=== PATIENT | female | born 1985 | race Caucasian/White ===

== ENCOUNTER → 2020-04-03 | Outpatient (CLI) | payer BC | LOC: RAD 09:53 | DX: I82.4Z2 Acute embolism and thrombosis of unspecified deep veins of left distal lower extremity (principal); Z98.890 Other specified postprocedural states ==

== ENCOUNTER → 2021-09-17 | Outpatient (CLI) | payer BC | LOC: VAS 08:45 | DX: R22.42 Localized swelling, mass and lump, left lower limb (principal); Z86.718 Personal history of other venous thrombosis and embolism ==